=== PATIENT | male | born 1955 | race Caucasian/White ===

== ENCOUNTER 2018-10-28 08:01 | Day surgery (SDC) | payer OTHER, SELFPAY ==
--- NOTE | 2018-10-28 | PATH_ITS ---
[facility] Accession Number: [id number] . 01 Material submitted: . sigmoid colon - SIGMOID COLON POLYP . 02 Diagnosis: Sigmoid Colon Polyp, Biopsy: Tubular adenoma. MRV/10/29/2018 . 02 Electronically signed: . Jojo Christensen MD, Pathologist NPI- [id number] . 01 Gross description: . SIGMOID COLON POLYP: Received in formalin is 1 fragment(s) of kuhn, soft tissue measuring 0.3 x 0.2 x 0.2 cm which is entirely submitted and submitted entirely in 1 cassette(s) /DMC /DMC . 02 Pathologist provided ICD-10: D12.5 . 02 CPT . 174836 Performed at: 01 [facility] [address] [id number] MD Heriberto Zepeda MD Phone: [phone] Performed at: 02 [facility] [place] [address] [place], [place] [id number] MD Jojo Christensen MD Phone: [phone]
[2018-10-28 08:30] VITALS: BP 146/89; PULSE 92; RESP 16; TEMP 36.6; BMI 31.8
[2018-10-28] MEDS: fentaNYL 250 MCG/5 ML INJ IV (10:33)
[2018-10-28] MEDS: MIDAZOLAM 5 MG/5 ML VIAL IV (10:34)
--- NOTE | 2018-10-28 10:38 | PM.HP.1 ---
History of Present Illness Date Patient Seen: 10/28/18 Time Patient Seen: 10:39 Chief complaint: [id number] Narrative: Need for colorectal cancer screening. Last colonoscopy 10 years ago. Possible history of colon polyp but told to follow-up in 10 years so probably not adenomatous. Patient History Medical History (Updated 10/28/18 @ 10:40 by Oni Moon MD) Asthma (Acute) Gout (Acute) Hypertension (Acute) Social History household members: spouse Family & Social History Social History: household members spouse Meds Home Medications Medication Instructions Recorded Confirmed Type albuterol sulfate [Ventolin HFA] 2 puff INHALATION PRN PRN #0 08/09/17 History doxycycline hyclate 100 mg PO Q12H #14 cap 08/09/17 Rx prednisone 50 mg PO [facility] #5 tab 08/09/17 Rx allopurinol 200 mg PO DAILY 10/28/18 10/28/18 History lisinopril-hydrochlorothiazide 1 tab PO DAILY 10/28/18 10/28/18 History tiotropium bromide [Spiriva 2 puff INHALATION DAILY 10/28/18 10/28/18 History Respimat] Allergies Allergy/AdvReac Type Severity Reaction Status Date / Time No Known Drug Allergies Allergy Verified 10/28/18 10:34 Exam Vital Signs (past 8 hours): - 10/28/18 08:30 Temperature 97.8 F Pulse Rate 92 H Respiratory Rate 16 Blood Pressure 146/89 H Oxygen Delivery Method Room Air Narrative Exam Narrative: Oropharynx free of lesions Chest clear to auscultation percussion Cardiac exam reveals no S3 or murmur Assessment & Plan Assessment & Plan narrative: Need for colorectal cancer screening. No history of precancerous polyps most likely Colonoscopy will be performed today. Risks, benefits, alternatives have been explained. Further recommendations will follow the results of the study.
[2018-10-28 10:39] VITALS: BP 96/60; PULSE 81; RESP 15; TEMP 36.1; O2SAT 98
--- NOTE | 2018-10-28 10:41 | P.HP_ITS ---
History of Present Illness Date Patient Seen: 10/28/18 Time Patient Seen: 10:39 Chief complaint: [id number] Narrative: Need for colorectal cancer screening. Last colonoscopy 10 years ago. Possible history of colon polyp but told to follow-up in 10 years so probably not adenomatous. Patient History Medical History (Updated 10/28/18 @ 10:40 by Oni Moon MD) Asthma (Acute) Gout (Acute) Hypertension (Acute) Social History household members: spouse Family & Social History Social History: household members spouse Meds Home Medications Medication Instructions Recorded Confirmed Type albuterol sulfate [Ventolin HFA] 2 puff INHALATION PRN PRN #0 08/09/17 History doxycycline hyclate 100 mg PO Q12H #14 cap 08/09/17 Rx prednisone 50 mg PO [facility] #5 tab 08/09/17 Rx allopurinol 200 mg PO DAILY 10/28/18 10/28/18 History lisinopril-hydrochlorothiazide 1 tab PO DAILY 10/28/18 10/28/18 History tiotropium bromide [Spiriva 2 puff INHALATION DAILY 10/28/18 10/28/18 History Respimat] Allergies Allergy/AdvReac Type Severity Reaction Status Date / Time No Known Drug Allergies Allergy Verified 10/28/18 10:34 Exam Vital Signs (past 8 hours): - 10/28/18 08:30 Temperature 97.8 F Pulse Rate 92 H Respiratory Rate 16 Blood Pressure 146/89 H Oxygen Delivery Method Room Air Narrative Exam Narrative: Oropharynx free of lesions Chest clear to auscultation percussion Cardiac exam reveals no S3 or murmur Assessment & Plan Assessment & Plan narrative: Need for colorectal cancer screening. No history o f precancerous polyps most likely Colonoscopy will be performed today. Risks, benefits, alternatives have been explained. Further recommendations will follow the results of the study.
--- NOTE | 2018-10-28 10:41 | PM.OP.ENDO ---
Operative Date/Time/Diagnoses Date of procedure: 10/28/18 Time of procedure: 10:41 Pre-op diagnosis: See indication and findings Procedure & Clinicians Study performed: Colonoscopy Same procedure as scheduled: Yes Indications: Colorectal cancer screening Surgeon: Oni Moon Procedure Notes Procedure in detail: After informed consent was obtained the patient was placed in left lateral decubitus position. The video colonoscope was introduced the rectum slowly advanced to the cecum. On slow withdrawal mucosa was carefully examined. Scope was removed. The patient tolerated the procedure well. preparation was good. Blood loss none Complications none Medications Fentanyl 100 microchromic Versed 6 mg IV titration Total sedation time 19 minutes Findings Scattered sigmoid diverticulosis 5 mm sigmoid colon polyp which was Jumbo biopsy removed completely Patient will be due for biopsy results. If the polyp is adenomatous as expected that he will need follow-up colonoscopy in 5 years.
[2018-10-28 10:44] VITALS: BP 106/67; PULSE 96; RESP 16; O2SAT 98
[2018-10-28 10:50] VITALS: BP 99/65; PULSE 79; RESP 16; O2SAT 99
[2018-10-28 11:05] VITALS: BP 97/61; PULSE 84; RESP 14; TEMP 36.2; O2SAT 96
[2018-10-28 11:20] VITALS: BP 110/60; PULSE 74; RESP 16; TEMP 36.1; O2SAT 98
== END 2018-10-28 11:25 | disposition home or self-care (01) ==
LOC: ENDO 08:06
PROVIDERS: Visit Provider Internal Medicine Gastroenterology
PROC: 0DJD8ZZ Inspection of Lower Intestinal Tract, Via Natural or Artificial Opening Endoscopic (ICD-10-PCS; CPT 45378; principal; 2018-10-28 09:30)
DX: Z12.11 Encounter for screening for malignant neoplasm of colon (principal); K57.30 Diverticulosis of large intestine without perforation or abscess without bleeding; D12.5 Benign neoplasm of sigmoid colon; J45.909 Unspecified asthma, uncomplicated; I10 Essential (primary) hypertension
CPT/HCPCS: 45380; J2250; J3010

== ENCOUNTER → 2019-09-17 07:47 | Outpatient (CLI) | payer OTHER, SELFPAY ==
--- NOTE | 2019-09-17 09:23 | PM.TREADMILL ---
Cardiac Stress Test Report Referral & Results Date Patient Seen: 09/17/19 Time Patient Seen: 09:23 Requesting provider: Angie Vallejo Indication: Chest pain Rest ECG: Sinus rhythm Procedure Note: Standard Sebas protocol, 7:30, 8.3 METS Reduced exercise capacity, GUERITA +11% Normal hemodynamic reponse to exercise No chest pain or anginal symptoms Resting ECG sinus rhythm, no ST changes, no ectopy Impression: Normal exercise stress test Nuclear images pending Please note: Actual ECG tracings can be found in the PACS system.
--- NOTE | 2019-09-20 14:24 | DI.NM.S_ITS ---
DATE OF SERVICE: 09/17/2019 PROCEDURE PERFORMED:: Exercise treadmill stress and rest myocardial perfusion imaging with gating to assess ejection fraction and regional wall motion. ORDERING PROVIDER:: Angie Vallejo M.D. INDICATION:: Unspecified chest pain. EXERCISE TREADMILL TESTING:: The patient was able to exercise for 7 minutes and 30 seconds on a standard Sebas protocol, suggesting mildly impaired exercise capacity with an GUERITA of +11%. He had a normal heart rate and blood pressure response, achieving a maximum heart rate of 138 bpm (87% of his predicted maximum). He had no chest discomfort. His resting ECG is normal and there are no ischemic changes with stress. There were no arrhythmias. At 6 minutes and 30 seconds of exercise at a heart rate of 130 bpm, 23.8 mCi of technetium-99m Myoview was injected and the patient was imaged 15 minutes later using a gated SPECT acquisition protocol. He returned three days later and was reinjected with an additional 25.6 mCi of technetium-99m Myoview and was imaged 30 minutes later, again using a gated SPECT acquisition protocol. FINDINGS:: 1. RAW DATA: There is fair myocardial tracer uptake. Lung-heart ratio was normal at 0.34 with a normal TID ratio of 0.75. 2. QUANTITATED GATED SPECT: Post-stress ejection fraction is estimated at 85% without any focal wall motion abnormality and specifically the distal inferoapex appears to have brisk contractility. The resting ejection fraction is 79% with an end- diastolic volume of 114 mL. 3. MYOCARDIAL PERFUSION IMAGING: Post-stress supine images show a fairly normal myocardial perfusion pattern with the exception of a very mild defect in the very distal inferior wall extending to the inferior apex in a pattern that could reflect attenuation artifact, although persists to a slight degree on the prone images. The resting images show an identical perfusion pattern without any clear area of improvement in this area. IMPRESSION:: 1. Probable normal myocardial perfusion study. 2. Mild, small fixed perfusion defect in the very distal inferior wall and inferoapex that improves, but does not completely resolve on the prone images. Given its location, this most likely reflects attenuation artifact, although a previous nontransmural myocardial infarction cannot be excluded, but is less likely given the absence of any regional wall motion abnormality. there is no evidence for any myocardial ischemia. 3. Normal left ventricular systolic function without any focal wall motion abnormality. 4. Mildly impaired exercise capacity without angina or ECG evidence of ischemia. Paiz Jovan - JOEY/justino/radha doc#: [id number]/job#: [id number] dd: 09/20/2019 12:42:00 dt: 09/20/2019 13:58:00 DICTATING MD/COPIES TO: Adolfo Zhou MD; Angie Vallejo M.D. COPIES MNE: RIAN;
== END ==
PROVIDERS: Referring Provider Nurse Practitioner Acute Care; Visit Provider Nurse Practitioner Acute Care
DX: R07.9 Chest pain, unspecified (principal)
CPT/HCPCS: 78452; 93017; A9502

== ENCOUNTER 2019-10-07 18:43 | Emergency (ER) | payer OTHER, MEDICAID, SELFPAY ==
--- NOTE | 2019-10-07 18:49 | ED_ITS ---
HPI - Anxiety General Chief Complaint: Shortness of Breath/Dyspnea Stated Complaint: anxiety attack, body freaking out cant breath Time Seen by Provider: 10/07/19 18:49 Source: patient and family Mode of arrival: Ambulatory Limitations: no limitations History of Present Illness HPI narrative: 63-year-old male former smoker with history of asthma, COPD, and hypertension presents with his in the chief complaint of episodes of palpitations and perceived shortness of breath over the past few days. He denies runny nose, sore throat or cough. He has had no fever or chills. He denies nausea, vomiting or diarrhea. He denies any change in his medications or diet. He denies any recent travel or exposure to persons under the suspicion for COVID-19. MD complaint: anxiety, heart racing and shortness of breath Onset (ago): day(s) Symptoms: dyspnea and palpitations Severity: mild Quality: intermittent History of similar episodes: No Provoking factors: none known Relieving factors: nothing Exacerbating factors: nothing Associated symptoms: shortness of breath and palpitations Related Data Home Medications Medication Instructions Recorded Confirmed albuterol sulfate [Ventolin HFA] 2 puff INHALATION PRN PRN #0 08/09/17 allopurinol 200 mg PO DAILY 10/28/18 10/28/18 lisinopril-hydrochlorothiazide 1 tab PO DAILY 10/28/18 10/28/18 tiotropium bromide [Spiriva 2 puff INHALATION DAILY 10/28/18 10/28/18 Respimat] Previous Rx's Medication Instructions Recorded doxycycline hyclate 100 mg PO Q12H #14 cap 08/09/17 prednisone 50 mg PO [facility] #5 tab 08/09/17 Allergies Allergy/AdvReac Type Severity Reaction Status Date / Time No Known Drug Allergies Allergy Verified 10/07/19 18:58 Review of Systems Constitutional Constitutional: Denies chills, Denies fatigue, Denies fever(s), Denies frequent falls, Denies lethargy and Denies weakness Eyes Eyes: Denies change in vision, Denies eye discharge, Denies irritation and Denies loss of vision ENT Ears, Nose, Mouth, and Throat: Denies change in voice, Denies dizziness, Denies neck pain, Denies sore throat and Denies throat swelling Cardiovascular Cardiovascular: Denies chest pain, Denies irregular heart rhythm, Denies lightheadedness, Reports palpitations, Reports dyspnea, Denies dyspnea on exertion and Denies orthopnea Respiratory Respiratory: Denies cough, Reports dyspnea, Denies dyspnea on exertion and Denies wheezing Gastrointestinal Gastrointestinal: Denies abdominal pain, Denies change in bowel habits, Denies diarrhea, Denies nausea and Denies vomiting Genitourinary Genitourinary: Denies hematuria, Denies flank pain, Denies urinary incontinence and Denies urinary urgency Musculoskeletal Musculoskeletal: Denies back pain, Denies muscle weakness, Denies neck pain, Denies numbness and Denies tingling Integumentary/Breasts Skin/Breast: Denies pruritus, Denies erythema, Denies rash and Denies wounds Neurologic Neurologic: Denies behavioral changes, Denies confusion, Denies dizziness, Denies frequent falls, Denies loss of vision, Denies numbness, Denies tingling and Denies weakness Psychiatric Psychiatric: Denies anxiety, Denies behavioral changes, Denies confusion, Denies depression, Denies homicidal ideation and Denies suicidal ideation Endocrine Endocrine: Denies fatigue, Denies flushing and Reports palpitations Hematologic/Lymphatic Hematologic/Lymphatic: Denies easy bruising Allergic/Immunologic Allergic/Immunologic: Denies urticaria, Denies throat swelling and Denies wheezing Patient History Medical History Asthma (Acute) Gout (Acute) Hypertension (Acute) Social History household members: spouse Smoking Status: Unknown if ever smoked Exam Narrative Exam Narrative: GENERAL: [63] year old patient appears stated age. Well- nourished, well-developed patient, in mild distress. HEAD: Atraumatic. Normocephalic. EYES: Pupils equal round and reactive. Extraocular motions intact. No scleral icterus. No injection or drainage. ENT: Nose without bleeding, purulent drainage. Throat without erythema, tonsillar hypertrophy or exudate. Airway patent. NECK: Trachea midline. Non tender CARDIOVASCULAR: Regular rate and rhythm without murmurs, gallops, or rubs. RESPIRATORY: Clear to auscultation. Breath sounds equal bilaterally. No wheezes, rales, or rhonchi. GASTROINTESTINAL: Abdomen soft, non-tender, nondistended. EXTREMITIES: No edema or joint tenderness. BACK: Nontender without deformity or crepitance. No flank tenderness. NEURO: AOx3. SKIN: No rash or erythema of visible areas Initial Vital Signs Initial Vital Signs: Vital Signs Temperature 98.0 F 10/07/19 18:50 Pulse Rate 103 H 10/07/19 18:50 Respiratory Rate 16 10/07/19 18:50 Blood Pressure 189/91 H 10/07/19 18:50 Pulse Oximetry 97 10/07/19 18:50 Course Orders Ordered: ED Orders 10/07/19 18:57 XR chest 1V Stat 10/07/19 18:58 EKG-12 Lead Stat 10/07/19 20:05 C-Reactive Protein Quant Stat Complete Blood Count AUTO DIFF Stat Comprehensive Metabolic Panel Stat D Dimer Stat Ferritin Stat Magnesium Stat NT-proBNP (BNP-Adult 18+) Stat Procalcitonin Stat Troponin & CK Cardiac Panel Stat Vital Signs Vital signs: Vital Signs - 8 hr 10/07/19 18:50 10/07/19 19:10 10/07/19 20:16 Temperature 98.0 F Pulse Rate 103 H 96 H 84 Respiratory Rate 16 22 Blood Pressure 189/91 H Blood Pressure [Right Arm] 158/77 H 175/97 H Pulse Oximetry 97 97 96 10/07/19 21:05 Temperature Pulse Rate 79 Respiratory Rate Blood Pressure Blood Pressure [Right Arm] 156/82 H Pulse Oximetry 96 MDM - Anxiety Lab Data Result diagrams: 10/07/19 20:05 10/07/19 20:05 Labs: Lab Results 10/07/19 10/07/19 10/07/19 Range/Units 20:05 20:05 20:05 WBC 8.3 (4.5-11.0) X10^3/uL RBC 4.66 (4.5-5.9) X10^6/uL Hgb 13.8 (13.5-17.5) g/dL Hct 41.1 (41-53) % MCV 88.1 (80-100) fL MCH 29.6 (26-34) PG MCHC 33.6 (30-36) % RDW 14.5 (11.6-14.8) % Plt Count 313 (150-400) X10^3/uL Neut % (Auto) 73.3 (50-75) % Lymph % (Auto) 16.3 L (25-40) % Radford % (Auto) 7.2 (3-14) % Eos % (Auto) 2.6 (2-4) % Baso % (Auto) 0.6 (0-2) % Neut # (Auto) 6100 (9723-4410) /uL Lymph # (Auto) 1300 (6812-9689) /uL Radford # (Auto) 600 (0-900) /uL Eos # (Auto) 200 (0-450) /uL Baso # (Auto) 0 (0-100) /uL D-Dimer 225 (<230) ng/mL Sodium 141 (137-145) mmol/L Potassium 3.8 (3.4-5.1) mmol/L Chloride 108 H (98-107) mmol/L Carbon Dioxide 27 (22-32) mmol/L BUN 15 (9-20) mg/dL Creatinine 1.51 H (0.66-1.25) mg/dL Estimated GFR 47.2 L (>60) mL/min BUN/Creatinine Ratio 9.9 (6-22) Glucose 96 (80-110) mg/dL Calcium 9.2 (8.4-10.2) mg/dL Magnesium 1.7 (1.6-2.3) mg/dL Ferritin 355 (18-464) ng/mL Total Bilirubin 0.8 (0.2-1.3) mg/dL AST 26 (17-59) IU/L ALT 26 (<50) IU/L Alkaline Phosphatase 109 (38-126) U/L Total Creatine Kinase 118 (55-170) U/L CK-MB (CK-2) 0.62 (<2.37) ng/mL CK-MB (CK-2) Rel Index 0.5 L (1.5-5.0) % Troponin I < 0.012 (0.01-0.034) ng/mL C-Reactive Protein 1.6 H (<1.0) mg/dL NT-Pro-B Natriuret Pep (<125) pg/mL Total Protein 7.9 (6.3-8.2) g/dL Albumin 4.4 (3.5-5.0) g/dL Globulin 3.5 (1.7-4.1) g/dL Albumin/Globulin Ratio 1.3 (1.0-2.8) Procalcitonin (<0.5) ng/mL 10/07/19 10/07/19 Range/Units 20:05 20:05 WBC (4.5-11.0) X10^3/uL RBC (4.5-5.9) X10^6/uL Hgb (13.5-17.5) g/dL Hct (41-53) % MCV (80-100) fL MCH (26-34) PG MCHC (30-36) % RDW (11.6-14.8) % Plt Count (150-400) X10^3/uL Neut % (Auto) (50-75) % Lymph % (Auto) (25-40) % Radford % (Auto) (3-14) % Eos % (Auto) (2-4) % Baso % (Auto) (0-2) % Neut # (Auto) (6138-8050) /uL Lymph # (Auto) (4209-5075) /uL Radford # (Auto) (0-900) /uL Eos # (Auto) (0-450) /uL Baso # (Auto) (0-100) /uL D-Dimer (<230) ng/mL Sodium (137-145) mmol/L Potassium (3.4-5.1) mmol/L Chloride (98-107) mmol/L Carbon Dioxide (22-32) mmol/L BUN (9-20) mg/dL Creatinine (0.66-1.25) mg/dL Estimated GFR (>60) mL/min BUN/Creatinine Ratio (6-22) Glucose (80-110) mg/dL Calcium (8.4-10.2) mg/dL Magnesium (1.6-2.3) mg/dL Ferritin (18-464) ng/mL Total Bilirubin (0.2-1.3) mg/dL AST (17-59) IU/L ALT (<50) IU/L Alkaline Phosphatase (38-126) U/L Total Creatine Kinase (55-170) U/L CK-MB (CK-2) (<2.37) ng/mL CK-MB (CK-2) Rel Index (1.5-5.0) % Troponin I (0.01-0.034) ng/mL C-Reactive Protein (<1.0) mg/dL NT-Pro-B Natriuret Pep 62 (<125) pg/mL Total Protein (6.3-8.2) g/dL Albumin (3.5-5.0) g/dL Globulin (1.7-4.1) g/dL Albumin/Globulin Ratio (1.0-2.8) Procalcitonin < 0.05 (<0.5) ng/mL Imaging Data Chest x-ray: Radiologist's Impression: Chart Viewer Diagnostics DATE TYPE STATUS AUTHOR Hx 10/07/19 18:57 Trae Gauthier 09/20/19 14:24 Adolfo Zhou 09/20/19 14:24 Adolfo Zhou 10/28/18 08:01 Jovan Paiz 63, 1955 [facility], Main ED R06 182.88cm 112.945kg BMI: 33.8kg/m? Shortness of Breath/Dyspnea Search Chart No Data to Display ONSET Today 20:16 Jovan Paiz 63 [place] 1955 [place] [address] XRay Report Signed Patient: Jovan Paiz LMR#: [id number] : 8Acct:[id number] Age/Sex: 63 / MDate of Service: 10/07/19 Loc: ED Accession Number: [id number] Procedure: XR chest 1V Ordering Provider: Victorino Hughes D.O. PROCEDURE: XR CHEST 1V INDICATIONS: SOB, cough TECHNIQUE: One view of the chest was acquired. COMPARISON: [facility], , CHEST 2 VIEW, 08/09/2017, 17:06. FINDINGS: Surgical changes and devices: None. Lungs and pleura: Lungs are clear. No pleural effusions or pneumothorax. Mediastinum: Mediastinal contours appear normal. Heart size is normal. Bones and chest wall: No suspicious bony lesions. Overlying soft tissues appear unremarkable. IMPRESSION: Stable radiographic evaluation of the chest without acute ca rdiopulmonary abnormalities or focal airspace disease. Dictated by: Trae Gauthier M.D. on 10/07/2019 at 19:19 Approved by: Trae Gauthier M.D. on 10/07/2019 at 19:20 [facility] Narrative Medical decision making narrative: Multiple etiologies for patient's symptoms considered including: [pneumonia vs. dysrhythmia vs. electrolyte abnormality vs. COPD exacerbation vs. other)] Patient's symptoms improved or duration of stay with above-stated therapies. Findings and discharge diagnosis discussed with patient/family followed by anselmo raezation of understanding Return precautions discussed with patient/family whom verbalize understanding. Discharge Plan Departure Patient Disposition: Home Clinical Impression: Acute dyspnea, Anxiety, Heart palpitations Discharge Date/Time: 10/07/19 21:32 Activity Restrictions/Additional Instructions: *You have been diagnosed with [ shortness of breath and palpitations] *What to do: *Take medications as directed *Follow up with your primary care provider in 2-3 days, call for an appointment. Let them know you were seen in the Emergency Department and that we ask that you be seen in follow up *Return to ER if you should have any new, worsening or concerning symptoms Prescriptions: No Action albuterol sulfate [Ventolin HFA] 90 MCG/PUFF HFA aerosol inhaler 2 puff Inhalation PRN PRN (Reason: Dyspnea) Qty: 0 RF: 0 doxycycline hyclate 100 MG capsule 100 mg PO Q12H Qty: 14 RF: 0 prednisone 50 MG tablet 50 mg PO [facility] Qty: 5 RF: 0 lisinopril-hydrochlorothiazide 20-12.5 mg Tablet 1 tab PO DAILY RF: 0 allopurinol 100 mg Tablet 200 mg PO DAILY RF: 0 Spiriva Respimat 2.5 mcg/actuation Mist 2 puff INHALATION DAILY RF: 0 Referrals: [facility] [Outside]
[2019-10-07 18:50] VITALS: BP 189/91; PULSE 103; RESP 16; TEMP 36.7; O2SAT 97; BMI 33.7
--- NOTE | 2019-10-07 18:57 | DI.RAD.S_ITS ---
PROCEDURE: XR CHEST 1V INDICATIONS: SOB, cough TECHNIQUE: One view of the chest was acquired. COMPARISON: [facility], , CHEST 2 VIEW, 08/09/2017, 17:06. FINDINGS: Surgical changes and devices: None. Lungs and pleura: Lungs are clear. No pleural effusions or pneumothorax. Mediastinum: Mediastinal contours appear normal. Heart size is normal. Bones and chest wall: No suspicious bony lesions. Overlying soft tissues appear unremarkable. IMPRESSION: Stable radiographic evaluation of the chest without acute cardiopulmonary abnormalities or focal airspace disease. Dictated by: Trae Gauthier M.D. on 10/07/2019 at 19:19 Approved by: Trae Gauthier M.D. on 10/07/2019 at 19:20
[2019-10-07 19:10] VITALS: BP 158/77; PULSE 96; O2SAT 97
[2019-10-07 20:16] VITALS: BP 175/97; PULSE 84; RESP 22; O2SAT 96
[2019-10-07 20:17] LABS: Add Manual Diff / Slide Review NO; Basophils Absolute Auto 0 /uL (0-100); Basophils Percent Auto 0.6 % (0-2); Eosinophils Absolute Auto 200 /uL (0-450); Eosinophils Percent Auto 2.6 % (2-4); Hematocrit 41.1 % (41-53); Hemoglobin 13.8 g/dL (13.5-17.5); Lymphocytes Absolute Auto 1300 /uL (1100-4500); Lymphocytes Percent Auto 16.3 % (25-40); Mean Corpuscular HGB Conc 33.6 % (30-36); Mean Corpuscular Hemoglobin 29.6 PG (26-34); Mean Corpuscular Volume 88.1 fL (80-100); Monocytes Absolute Auto 600 /uL (0-900); Monocytes Percent Auto 7.2 % (3-14); Neutrophils Absolute Auto 6100 /uL (1500-7000); Neutrophils Percent Auto 73.3 % (50-75); Platelet Count 313 X10^3/uL (150-400); Red Blood Cell Count 4.66 X10^6/uL (4.5-5.9); Red Cell Distribution Width 14.5 % (11.6-14.8); White Blood Cell Count 8.3 X10^3/uL (4.5-11.0)
[2019-10-07 20:27] LABS: D Dimer 225 ng/mL (<230)
[2019-10-07 20:30] LABS: Alanine Aminotransferase 26 IU/L (<50); Albumin 4.4 g/dL (3.5-5.0); Albumin Globulin Ratio 1.3 (1.0-2.8); Alkaline Phosphatase 109 U/L (38-126); Aspartate Aminotransferase 26 IU/L (17-59); BUN Creatinine Ratio 9.9 (6-22); Bilirubin Total 0.8 mg/dL (0.2-1.3); Blood Urea Nitrogen 15 mg/dL (9-20); Calcium 9.2 mg/dL (8.4-10.2); Carbon Dioxide 27 mmol/L (22-32); Chloride 108 mmol/L (98-107); Creatine Kinase 118 U/L (55-170); Estimated Glomerular Filt Rate 47.2 mL/min (>60); Globulin 3.5 g/dL (1.7-4.1); Glucose 96 mg/dL (80-110); HEMOLYSIS < 15 (0-50); Magnesium 1.7 mg/dL (1.6-2.3); Potassium 3.8 mmol/L (3.4-5.1); Sodium 141 mmol/L (137-145); Total Protein 7.9 g/dL (6.3-8.2)
[2019-10-07 20:37] LABS: C-Reactive Protein Quant 1.6 mg/dL (<1.0)
[2019-10-07 20:39] LABS: NT-proBNP (BNP-Adult 18+) 62 pg/mL (<125)
[2019-10-07 20:42] LABS: Troponin I < 0.012 ng/mL (0.01-0.034)
[2019-10-07 20:54] LABS: Procalcitonin < 0.05 ng/mL (<0.5)
[2019-10-07 21:05] VITALS: BP 156/82; PULSE 79; O2SAT 96
[2019-10-07 21:05] LABS: Ferritin 355 ng/mL (18-464)
[2019-10-07 21:21] LABS: CKMB % Relative Index 0.5 % (1.5-5.0); Creatine Kinase MB 0.62 ng/mL (<2.37)
[2019-10-09 22:53] LABS: COVID19 Sendout Not Detected (Not Detected)
== END 2019-10-07 21:32 | disposition home or self-care (01) ==
PROVIDERS: Emergency Provider Emergency Medicine
DX: R06.00 Dyspnea, unspecified (principal); F41.9 Anxiety disorder, unspecified; R00.2 Palpitations; I10 Essential (primary) hypertension; J44.9 Chronic obstructive pulmonary disease, unspecified
CPT/HCPCS: 36415; 71045; 80053; 82550; 82553; 82728; 83735; 83880; 84145; 84484; 85025; 85379; 86140; 87635; 93005; 99284

== ENCOUNTER 2019-10-15 13:22 | Emergency (ER) | payer OTHER, MEDICAID, SELFPAY ==
[2019-10-15 13:28] VITALS: BP 174/81; PULSE 108; RESP 24; TEMP 36.3; O2SAT 97
--- NOTE | 2019-10-15 14:16 | DI.RAD.S_ITS ---
PROCEDURE: XR CHEST 1V INDICATIONS: chest pain TECHNIQUE: One view of the chest was acquired. COMPARISON: [facility], CR, XR CHEST 1V, 10/07/2019, 19:07. FINDINGS: Surgical changes and devices: None. Lungs and pleura: Lungs are clear. No pleural effusions or pneumothorax. Mediastinum: Mediastinal contours appear normal. Heart size is normal. Bones and chest wall: No suspicious bony lesions. Overlying soft tissues appear unremarkable. IMPRESSION: No evidence acute pulmonary process. Dictated by: hCin Vazquez M.D. on 10/15/2019 at 15:38 Approved by: Chin Vazquez M.D. on 10/15/2019 at 15:38
[2019-10-15 14:24] LABS: Add Manual Diff / Slide Review NO; Basophils Absolute Auto 0 /uL (0-100); Basophils Percent Auto 0.9 % (0-2); Eosinophils Absolute Auto 100 /uL (0-450); Eosinophils Percent Auto 2.5 % (2-4); Hematocrit 40.4 % (41-53); Hemoglobin 13.6 g/dL (13.5-17.5); Lymphocytes Absolute Auto 800 /uL (1100-4500); Lymphocytes Percent Auto 14.6 % (25-40); Mean Corpuscular HGB Conc 33.7 % (30-36); Mean Corpuscular Hemoglobin 29.6 PG (26-34); Mean Corpuscular Volume 87.8 fL (80-100); Monocytes Absolute Auto 400 /uL (0-900); Monocytes Percent Auto 7.1 % (3-14); Neutrophils Absolute Auto 4200 /uL (1500-7000); Neutrophils Percent Auto 74.9 % (50-75); Platelet Count 332 X10^3/uL (150-400); Red Cell Distribution Width 14.3 % (11.6-14.8); White Blood Cell Count 5.6 X10^3/uL (4.5-11.0)
--- NOTE | 2019-10-15 14:27 | ED.GENADULT ---
HPI - General Adult General Chief complaint: Fever Stated complaint: Burning and pressure in chest, fever, cough Time Seen by Provider: 10/15/19 13:54 Source: patient Mode of arrival: Ambulatory Limitations: no limitations History of Present Illness HPI narrative: 63-year-old gentleman followed at the [facility] with a history of COPD, gout, hypertension presents with coughing and burning pain with the cough. He notes that he had chills and rigors with fever last night had difficulty sleeping. He is been symptomatic for approximately a week and is now beginning to produce some yellow sputum. Was seen on October 06 for dyspnea and was Covid19 negative at that time. He had a cardiac stress test September 16 for chest pain and was found to have normal hemodynamic response to exercise without reproducible chest pain during the exam. Related Data Home Medications Medication Instructions Recorded Confirmed albuterol sulfate [Ventolin HFA] 2 puff INHALATION PRN PRN #0 08/09/17 10/15/19 allopurinol 200 mg PO DAILY 10/28/18 10/15/19 tiotropium bromide [Spiriva 2 puff INHALATION DAILY 10/28/18 10/15/19 Respimat] Previous Rx's Medication Instructions Recorded benzonatate [Tessalon Perles] 100 mg PO BID PRN #14 cap 10/15/19 prednisone 20 mg PO DAILY #5 tab 10/15/19 Allergies Allergy/AdvReac Type Severity Reaction Status Date / Time No Known Drug Allergies Allergy Verified 10/15/19 13:31 Review of Systems Review of Systems Narrative: Denies Rhinorrhea ? orthopnea ? wheezing ? abdominal pain ? change to bowel or bladder habits ? nausea vomiting ? skin changes ? rashes Patient History Medical History Asthma (Acute) Gout (Acute) Hypertension (Acute) Social History household members: spouse Smoking Status: Former smoker Smoking Status: Former smoker alcohol intake frequency: holidays/special occasions only Substance Use Type: does not use Exam Narrative Exam Narrative: General: Healthy appearing, in no acute distress. Able to give a complete and coherent history. Well-nourished well-developed HEENT: Moist mucous membranes, normal sclera with reactive pupils, Neck: No JVD, supple Respiratory: Lungs are essentially clear to auscultation, no wheezing, no rhonchi does have scattered rales in the lower lung jalloh bilaterally. Full and symmetrical air movement Cardiac: Regular rate and rhythm no murmurs no bruits Abdomen: Soft nontender good bowel tones, no flank pain Skin: Warm and dry, no rashes Neurologic: Grossly neurologically intact with no obvious asymmetries or abnormalities Extremities: No trauma, well perfused, 1+ edema bilaterally Psych: Cooperative, appropriate insight and affect Initial Vital Signs Initial Vital Signs: Vital Signs Temperature 97.4 F L 10/15/19 13:28 Pulse Rate 108 H 10/15/19 13:28 Respiratory Rate 24 10/15/19 13:28 Blood Pressure 174/81 H 10/15/19 13:28 Pulse Oximetry 97 10/15/19 13:28 Course Orders Ordered: ED Orders 10/15/19 13:33 EKG-12 Lead Stat 10/15/19 14:00 Complete Blood Count AUTO DIFF Stat Comprehensive Metabolic Panel Stat Lactate (Lactic Acid) Stat Lipase Stat Partial Thromboplastin Time Stat Prothrombin Time INR Stat Troponin & CK Cardiac Panel Stat 10/15/19 14:16 XR chest 1V Stat Discontinued Medications Sodium Chloride (Normal Saline 0.9%) 1,000 mls @ 1,000 mls/hr IV BOLUS ONE Stop: 10/15/19 15:25 Last Infusion: 10/15/19 16:31 Dose: 0 mls/hr Documented by: Admin: 10/15/19 15:15 Dose: 1,000 mls/hr Documented by: BETTY Methylprednisolone (Solu-Medrol 125 Mg Vial) 125 mg IV NOW ONE Stop: 10/15/19 14:34 Last Admin: 10/15/19 15:15 Dose: 125 mg Documented by: BETTY Vital Signs Vital signs: Vital Signs - 8 hr 10/15/19 13:28 10/15/19 15:03 10/15/19 16:03 Temperature 97.4 F L Pulse Rate 108 H 85 77 Respiratory Rate 24 11 L 11 L Blood Pressure 174/81 H Blood Pressure [Right Arm] 164/78 H 143/71 H Pulse Oximetry 97 97 97 10/15/19 16:30 Temperature Pulse Rate 87 Respiratory Rate 14 Blood Pressure Blood Pressure [Right Arm] 155/74 H Pulse Oximetry 96 Medical Decision Making Medical Records Medical records reviewed: Yes I reviewed the patient's medical records. Lab Data Result diagrams: 10/15/19 14:00 10/15/19 14:00 Labs: Lab Results 10/15/19 10/15/19 10/15/19 Range/Units 14:00 14:00 14:00 WBC 5.6 (4.5-11.0) X10^3/uL RBC 4.60 (4.5-5.9) X10^6/uL Hgb 13.6 (13.5-17.5) g/dL Hct 40.4 L (41-53) % MCV 87.8 (80-100) fL MCH 29.6 (26-34) PG MCHC 33.7 (30-36) % RDW 14.3 (11.6-14.8) % Plt Count 332 (150-400) X10^3/uL Neut % (Auto) 74.9 (50-75) % Lymph % (Auto) 14.6 L (25-40) % Brantley % (Auto) 7.1 (3-14) % Eos % (Auto) 2.5 (2-4) % Baso % (Auto) 0.9 (0-2) % Neut # (Auto) 4200 (0228-5571) /uL Lymph # (Auto) 800 L (3045-8528) /uL Brantley # (Auto) 400 (0-900) /uL Eos # (Auto) 100 (0-450) /uL Baso # (Auto) 0 (0-100) /uL PT 12.5 (10.1-12.7) SECONDS INR 1.1 (0.9-1.3) APTT 31 (26.4-36.2) SECONDS Sodium 139 (137-145) mmol/L Potassium 3.9 (3.4-5.1) mmol/L Chloride 108 H (98-107) mmol/L Carbon Dioxide 24 (22-32) mmol/L BUN 12 (9-20) mg/dL Creatinine 1.17 (0.66-1.25) mg/dL Estimated GFR > 60.0 (>60) mL/min BUN/Creatinine Ratio 10.3 (6-22) Glucose 128 H (80-110) mg/dL Lactate (0.7-2.1) mmol/L Calcium 9.4 (8.4-10.2) mg/dL Total Bilirubin 0.6 (0.2-1.3) mg/dL AST 39 (17-59) IU/L ALT 45 (<50) IU/L Alkaline Phosphatase 107 (38-126) U/L Total Creatine Kinase 139 (55-170) U/L CK-MB (CK-2) 1.08 (<2.37) ng/mL CK-MB (CK-2) Rel Index 0.8 L (1.5-5.0) % Troponin I < 0.012 (0.01-0.034) ng/mL Total Protein 8.0 (6.3-8.2) g/dL Albumin 4.4 (3.5-5.0) g/dL Globulin 3.6 (1.7-4.1) g/dL Albumin/Globulin Ratio 1.2 (1.0-2.8) Lipase 106 (23-300) U/L 10/15/19 Range/Units 14:00 WBC (4.5-11.0) X10^3/uL RBC (4.5-5.9) X10^6/uL Hgb (13.5-17.5) g/dL Hct (41-53) % MCV (80-100) fL MCH (26-34) PG MCHC (30-36) % RDW (11.6-14.8) % Plt Count (150-400) X10^3/uL Neut % (Auto) (50-75) % Lymph % (Auto) (25-40) % Brantley % (Auto) (3-14) % Eos % (Auto) (2-4) % Baso % (Auto) (0-2) % Neut # (Auto) (8070-8443) /uL Lymph # (Auto) (1168-5427) /uL Brantley # (Auto) (0-900) /uL Eos # (Auto) (0-450) /uL Baso # (Auto) (0-100) /uL PT (10.1-12.7) SECONDS INR (0.9-1.3) APTT (26.4-36.2) SECONDS Sodium (137-145) mmol/L Potassium (3.4-5.1) mmol/L Chloride (98-107) mmol/L Carbon Dioxide (22-32) mmol/L BUN (9-20) mg/dL Creatinine (0.66-1.25) mg/dL Estimated GFR (>60) mL/min BUN/Creatinine Ratio (6-22) Glucose (80-110) mg/dL Lactate 0.8 (0.7-2.1) mmol/L Calcium (8.4-10.2) mg/dL Total Bilirubin (0.2-1.3) mg/dL AST (17-59) IU/L ALT (<50) IU/L Alkaline Phosphatase (38-126) U/L Total Creatine Kinase (55-170) U/L CK-MB (CK-2) (<2.37) ng/mL CK-MB (CK-2) Rel Index (1.5-5.0) % Troponin I (0.01-0.034) ng/mL Total Protein (6.3-8.2) g/dL Albumin (3.5-5.0) g/dL Globulin (1.7-4.1) g/dL Albumin/Globulin Ratio (1.0-2.8) Lipase (23-300) U/L Imaging Data Chest x-ray: Radiologist's Impression: IMPRESSION: Stable radiographic evaluation of the chest without acute cardiopulmonary abnormalities or focal airspace disease. Dictated by: Trae Gauthier M.D. on 10/07/2019 at 19:19 ECG Data Attestation: I personally reviewed and interpreted this ECG as follows: Interpretation: Sinus rhythm at a rate of 94 Borderline left axis deviation without any acute ischemic changes MDM Narrative Medical decision making narrative: 63-year-old gentleman with persistent cough. No evidence of infiltrate on chest x-ray, normal white blood cell count no abnormal EKG or lab to suggest acute coronary syndrome, clinically no concern for pulmonary embolism. Covid19 testing is pending however clinically seems less likely at this time. With his history of COPD will treat him with a brief steroid taper have him continue his albuterol inhalers and give him some Tessalon to help control the cough. Discharge Plan Departure Patient Disposition: Home Clinical Impression: Viral infection, Acute exacerbation of chronic obstructive pulmonary disease, Cough Instructions: DI for Viral Syndrome Activity Restrictions/Additional Instructions: Thank you for coming in today I am not finding any life-threatening explanations for your persistent cough. There is no evidence of a consolidated pneumonia, heart attack or heart attack like syndrome, your oxygen levels are reassuring. We have done a Covid19 swab and you will hear back when results are available. In the meantime I am going to suggest we assume that this is a typical virus that will improve and has exacerbated her COPD. I am going to suggest a brief steroid taper and continued use of your albuterol. I will also give you some Tessalon Perles to help suppress the cough a bit. In the meantime, CDC Guidelines for home isolation: - Stay away from others - Limit contact with pets and animals: If you must care for a pet, wash your hands before and after interacting with them - Wear a mask if you are sick - Cover your mouth and nose with a tissue when you cough or sneeze. Dispose of tissues in a lined trash can and wash your hands immediately with soap and water for at least 20 seconds. If soap and water are not available, clean hands with alcohol-based hand cylinder head assembler that contains at least 60% alcohol. - Clean your hands often with soap and water for at least 20 seconds - Avoid touching your eyes, nose and mouth with unwashed hands - Do not share dishes, drinking glasses, cups, eating utensils, towels, or bedding with other people in your home. After using these items, wash them thoroughly with soap and water or put in the diamond merchant. - Clean high-touch surfaces in your isolation area (?sick room? and bathroom) every day; let a caregiver clean and disinfect high-touch surfaces in other areas of the home. Clean the area or item with soap and water or another detergent if it is dirty. Then, use a household disinfectant. Seek medical attention, but call first: - Seek medical care right away if your illness is worsening (for example, if you have difficulty breathing). - Call your doctor before going in: Before going to the doctor?s office or emergency room, call ahead and tell them your symptoms. They will tell you what to do. - If possible, put on a facemask before you enter the building. If you can?t put on a facemask, try to keep a safe distance from other people (at least 6 feet away). This will help protect the people in the office or waiting room. - Follow care instructions from your healthcare provider and local health department: Your local health authorities will give instructions on checking your symptoms and reporting information. Emergency warning signs for COVID-19: - Difficulty breathing or shortness of breath - Persistent pain or pressure in the chest - New confusion or inability to arouse - Bluish lips or face Prescriptions: New prednisone 20 mg tablet 20 mg PO DAILY Qty: 5 RF: 0 benzonatate [Tessalon Perles] 100 mg capsule 100 mg PO BID PRN (Reason: cough) Qty: 14 RF: 0 No Action albuterol sulfate [Ventolin HFA] 90 MCG/PUFF HFA aerosol inhaler 2 puff Inhalation PRN PRN (Reason: Dyspnea) Qty: 0 RF: 0 allopurinol 100 mg Tablet 200 mg PO DAILY RF: 0 Spiriva Respimat 2.5 mcg/actuation Mist 2 puff INHALATION DAILY RF: 0 Referrals: Angie Vallejo [Primary Care Provider] -
[2019-10-15 14:28] LABS: INR 1.1 (0.9-1.3); Prothrombin Time 12.5 SECONDS (10.1-12.7)
[2019-10-15 14:30] LABS: PTT Partial Thromboplastin Tim 31 SECONDS (26.4-36.2)
[2019-10-15 14:32] LABS: Alanine Aminotransferase 45 IU/L (<50); Albumin 4.4 g/dL (3.5-5.0); Albumin Globulin Ratio 1.2 (1.0-2.8); Alkaline Phosphatase 107 U/L (38-126); Aspartate Aminotransferase 39 IU/L (17-59); BUN Creatinine Ratio 10.3 (6-22); Bilirubin Total 0.6 mg/dL (0.2-1.3); Blood Urea Nitrogen 12 mg/dL (9-20); Calcium 9.4 mg/dL (8.4-10.2); Carbon Dioxide 24 mmol/L (22-32); Chloride 108 mmol/L (98-107); Creatine Kinase 139 U/L (55-170); Estimated Glomerular Filt Rate > 60.0 mL/min (>60); Globulin 3.6 g/dL (1.7-4.1); Glucose 128 mg/dL (80-110); HEMOLYSIS < 15 (0-50); Lactate (Lactic Acid) 0.8 mmol/L (0.7-2.1); Lipase 106 U/L (23-300); Potassium 3.9 mmol/L (3.4-5.1); Sodium 139 mmol/L (137-145)
[2019-10-15 14:43] LABS: Troponin I < 0.012 ng/mL (0.01-0.034)
[2019-10-15 14:46] LABS: CKMB % Relative Index 0.8 % (1.5-5.0); Creatine Kinase MB 1.08 ng/mL (<2.37)
[2019-10-15 15:03] VITALS: BP 164/78; PULSE 85; RESP 11; O2SAT 97
[2019-10-15] MEDS: methylPREDNISolone 125 MG/2 ML VIAL IV (15:15)
[2019-10-15] MEDS: SODIUM CHLORIDE 0.9% 1,000 ML 1000 ML IV (15:15)
[2019-10-15 16:03] VITALS: BP 143/71; PULSE 77; RESP 11; O2SAT 97
[2019-10-15 16:30] VITALS: BP 155/74; PULSE 87; RESP 14; O2SAT 96
[2019-10-15 17:33] VITALS: BP 161/77; PULSE 92; RESP 15; O2SAT 96
[2019-10-15 17:58] VITALS: BP 166/77; PULSE 84; RESP 16; O2SAT 98
[2019-10-17 07:10] LABS: COVID19 Sendout Not Detected (Not Detected)
== END 2019-10-15 17:59 | disposition home or self-care (01) ==
PROVIDERS: Emergency Provider Emergency Medicine; PCP Nurse Practitioner Acute Care
DX: J44.1 Chronic obstructive pulmonary disease with (acute) exacerbation (principal); R05 Cough; B34.9 Viral infection, unspecified
CPT/HCPCS: 36415; 71045; 80053; 82550; 82553; 83605; 83690; 84484; 85025; 85610; 85730; 87635; 93005; 96361; 96374; 99284; J2930

== ENCOUNTER 2019-10-22 22:25 | Emergency (ER) | payer OTHER, MEDICAID, SELFPAY ==
--- NOTE | 2019-10-22 22:32 | ED_ITS ---
HPI - URI/Sore Throat General Chief Complaint: Upper Respiratory Symptoms Stated Complaint: THROAT FEELS LIKE CLOSING BACK NECK SALAMANCA Time Seen by Provider: 10/22/19 22:26 Source: patient Mode of arrival: Ambulatory Limitations: no limitations History of Present Illness HPI Narrative: 63M former smoker with asthma presents for the 3rd time in the past month. He's been evaluated twice for COVID-19 and both swabs have been negative. He's had thorough workups and notes that his throat symptoms had completely resolved after a course of steroids, but as soon as they wear off he gets the sensation that his throat is closing. He states it feels scratchy and sometimes painful, but largely that it is closing. He denies trouble breathing, rash, or other. He's had no runny nose or fever. He denies N/V/D. He is not di zzy, weak, or lightheaded. MD Complaint: sore throat Onset (ago): week(s) Duration: intermittent Severity: moderate Relieving factors: nothing Exacerbating factors: nothing Description of mucous: clear Able to tolerate fluids by mouth: Yes Associated symptoms: denies other symptoms Treatments prior to arrival: none Related Data Home Medications Medication Instructions Recorded Confirmed albuterol sulfate [Ventolin HFA] 2 puff INHALATION PRN PRN #0 08/09/17 10/15/19 allopurinol 200 mg PO DAILY 10/28/18 10/15/19 tiotropium bromide [Spiriva 2 puff INHALATION DAILY 10/28/18 10/15/19 Respimat] Previous Rx's Medication Instructions Recorded benzonatate [Tessalon Perles] 100 mg PO BID PRN #14 cap 10/15/19 prednisone 20 mg PO DAILY #5 tab 10/15/19 prednisone See Rx Instructions .ROUTE 10/22/19 .COMPLEX #30 tab Allergies Allergy/AdvReac Type Severity Reaction Status Date / Time No Known Drug Allergies Allergy Verified 10/22/19 22:45 Review of Systems Constitutional Constitutional: Denies chills, Denies fatigue, Denies fever(s), Denies frequent falls, Denies lethargy and Denies weakness Eyes Eyes: Denies change in vision, Denies eye discharge, Denies irritation and Denies loss of vision ENT Ears, Nose, Mouth, and Throat: Denies change in voice, Denies dizziness, Denies neck pain, Reports sore throat and Reports throat swelling Cardiovascular Cardiovascular: Denies chest pain, Denies irregular heart rhythm, Denies lightheadedness, Denies palpitations, Denies dyspnea, Denies dyspnea on exertion and Denies orthopnea Respiratory Respiratory: Denies cough, Denies dyspnea, Denies dyspnea on exertion and Denies wheezing Gastrointestinal Gastrointestinal: Denies abdominal pain, Denies change in bowel habits, Denies diarrhea, Denies nausea and Denies vomiting Genitourinary Genitourinary: Denies hematuria, Denies flank pain, Denies urinary incontinence and Denies urinary urgency Musculoskeletal Musculoskeletal: Denies back pain, Denies muscle weakness, Denies neck pain, Denies numbness and Denies tingling Integumentary/Breasts Skin/Breast: Denies pruritus, Denies erythema, Denies rash and Denies wounds Neurologic Neurologic: Denies behavioral changes, Denies confusion, Denies dizziness, Denies frequent falls, Denies loss of vision, Denies numbness, Denies tingling and Denies weakness Psychiatric Psychiatric: Denies anxiety, Denies behavioral changes, Denies confusion, Denies depression, Denies homicidal ideation and Denies suicidal ideation Endocrine Endocrine: Denies fatigue, Denies flushing and Denies palpitations Hematologic/Lymphatic Hematologic/Lymphatic: Denies easy bruising Allergic/Immunologic Allergic/Immunologic: Denies urticaria, Reports throat swelling and Denies wheezing Patient History Medical History Asthma (Acute) Gout (Acute) Hypertension (Acute) Social History household members: spouse Smoking Status: Former smoker Smoking Status: Former smoker alcohol intake frequency: holidays/special occasions only Substance Use Type: does not use Exam Narrative Exam Narrative: GENERAL: [63] year old patient appears stated age. Well- nourished, well-developed patient, in mild distress. HEAD: Atraumatic. Normocephalic. EYES: Pupils equal round and reactive. Extraocular motions intact. No scleral icterus. No injection or drainage. ENT: Nose without bleeding, purulent drainage. Throat with mild posterior pharyngeal erythema but widely patent and without tonsillar swelling or exudate. No uvular swelling. No suggestion of abscess as evidenced by pharyngeal fullness NECK: Trachea midline. Non tender CARDIOVASCULAR: Regular rate and rhythm without murmurs, gallops, or rubs. RESPIRATORY: Clear to auscultation. Breath sounds equal bilaterally. No wheezes, rales, or rhonchi. GASTROINTESTINAL: Abdomen soft, non-tender, nondistended. EXTREMITIES: No edema or joint tenderness. BACK: Nontender without deformity or crepitance. No flank tenderness. NEURO: AOx3. SKIN: No rash or erythema of visible areas Initial Vital Signs Initial Vital Signs: Vital Signs Temperature 98.5 F 10/22/19 22:45 Pulse Rate 89 10/22/19 22:45 Respiratory Rate 16 10/22/19 22:45 Blood Pressure 165/80 H 10/22/19 22:45 Pulse Oximetry 98 10/22/19 22:45 Course Orders Ordered: ED Orders 10/22/19 22:35 Throat Culture Stat 10/22/19 23:06 Monotest Stat Discontinued Medications Dexamethasone (Decadron) 10 mg PO NOW ONE Stop: 10/22/19 22:37 Last Admin: 10/22/19 22:58 Dose: 10 mg Documented by: SHANNON Ketorolac Tromethamine (Toradol) 60 mg IM NOW ONE Stop: 10/22/19 22:37 Last Admin: 10/22/19 22:59 Dose: Not Given Documented by: SHANNON Ketorolac Tromethamine (Toradol) 30 mg IM NOW ONE Stop: 10/22/19 22:56 Last Admin: 10/22/19 22:59 Dose: 30 mg Documented by: SHANNON Vital Signs Vital signs: Vital Signs - 8 hr 10/22/19 22:45 Temperature 98.5 F Pulse Rate 89 Respiratory Rate 16 Blood Pressure 165/80 H Pulse Oximetry 98 MDM - URI/Sore Throat Lab Data Labs: Lab Results 10/22/19 Range/Units 23:06 Monoscreen Negative (Negative) Point of Care Testing Rapid Strep A Negative Discharge Plan Departure Patient Disposition: Home Clinical Impression: Pain in throat, Throat fullness Activity Restrictions/Additional Instructions: *You have been diagnosed with [throat fullness. Strep test and mono test were negative. There is a throat culture pending which should be back within a few days ] *What to do: *Take medications as directed *Follow up with your primary care provider in 2-3 days, call for an appointment. Let them know you were seen in the Emergency Department and that we ask that you be seen in follow up *Return to ER if you should have any new, worsening or concerning symptoms Prescriptions: New prednisone 10 mg tablet See Rx Instructions .ROUTE .COMPLEX Qty: 30 RF: 0 No Action albuterol sulfate [Ventolin HFA] 90 MCG/PUFF HFA aerosol inhaler 2 puff Inhalation PRN PRN (Reason: Dyspnea) Qty: 0 RF: 0 allopurinol 100 mg Tablet 200 mg PO DAILY RF: 0 Spiriva Respimat 2.5 mcg/actuation Mist 2 puff INHALATION DAILY RF: 0 prednisone 20 mg tablet 20 mg PO DAILY Qty: 5 RF: 0 benzonatate [Tessalon Perles] 100 mg capsule 100 mg PO BID PRN (Reason: cough) Qty: 14 RF: 0 Referrals: Angie Vallejo [Primary Care Provider] -
[2019-10-22 22:45] VITALS: BP 165/80; PULSE 89; RESP 16; TEMP 36.9; O2SAT 98; BMI 33.2
[2019-10-22] MEDS: DEXAMETHASONE 10 MG/ML VIAL PO (22:58)
[2019-10-22] MEDS: KETOROLAC 60 MG/2 ML VIAL 30 MG IM (22:59)
[2019-10-22 23:21] LABS: Monotest Negative (Negative)
[2019-10-23 00:09] VITALS: BP 165/80; PULSE 83; RESP 16; O2SAT 99
== END 2019-10-23 00:11 | disposition home or self-care (01) ==
PROVIDERS: Emergency Provider Emergency Medicine; PCP Nurse Practitioner Acute Care
DX: R07.0 Pain in throat (principal); R68.89 Other general symptoms and signs
CPT/HCPCS: 36415; 86318; 87070; 87880; 96372; 99283; 99284; J1100; J1885

== ENCOUNTER 2023-02-28 08:05 | Emergency (ER) | payer OTHER, SELFPAY ==
[2023-02-28] VITALS (10 sets, daily range): BP systolic 139–184; BP diastolic 63–83; PULSE 96–115; RESP 13–21; TEMP 36.3; O2SAT 91–96; BMI 29.2
--- NOTE | 2023-02-28 08:14 | DI.RAD.S_ITS ---
PROCEDURE: XR CHEST 1V INDICATIONS: chest pain TECHNIQUE: One view of the chest was acquired. COMPARISON: [facility], CR, XR CHEST 1V, 10/15/2019, 14:27. [facility], CR, XR CHEST 1V, 10/07/2019, 19:07. FINDINGS: Surgical changes and devices: None. Lungs and pleura: No consolidation. No pleural effusions or pneumothorax. Mediastinum: Mediastinal contours appear normal. Heart size is normal. Bones and chest wall: No suspicious bony lesions. Overlying soft tissues appear unremarkable. IMPRESSION: No acute cardiopulmonary abnormality. Dictated by: Bryce King M.D. on 02/28/2023 at 8:59 Approved by: Bryce King M.D. on 02/28/2023 at 9:00
--- NOTE | 2023-02-28 08:15 | ED_ITS ---
HPI - Chest Pain General Chief Complaint: Chest Pain Stated Complaint: [facility] woke [facility] diff breathing, sweating Time Seen by Provider: 02/28/23 08:07 Source: patient Mode of arrival: Family Vehicle Limitations: no limitations History of Present Illness HPI narrative: 67-year-old male former smoker with history of COPD and asthma presents with his in the chief complaint of chest pain and shortness of breath this morning. He states that he went to bed feeling in his normal state of health other than having some mouth pain, he recently had some teeth pulled but upon waking today feels short of breath and had been sweaty, he contacted the [place] and was sent here for evaluation. He states that he is short of breath persistently and denies any change with exertion, no worsening with lying flat, no swelling of his legs. He states that he has some central chest pain that seems to come and go with a mind of its own and states that he has been having this for many years and this is no different. He denies any exertional symptoms, radiation of the pain or exercise intolerance. He denies recent travel, trauma, hospitalization, history of cancer or blood clot. Related Data Home Medications Medication Instructions Recorded Confirmed albuterol sulfate 90 mcg/actuation 2 puff inhalation PRN PRN Dyspnea 08/09/17 10/15/19 aerosol inhaler (Ventolin HFA) ##0 allopurinol 100 mg tablet 200 mg PO DAILY 10/28/18 10/15/19 tiotropium bromide 2.5 2 puff inhalation DAILY 10/28/18 10/15/19 mcg/actuation mist for inhalation (Spiriva Respimat) Previous Rx's Medication Instructions Recorded benzonatate 100 mg capsule 100 mg PO BID PRN cough #14 caps 10/15/19 (Alisa Rico) prednisone 20 mg tablet 20 mg PO DAILY #5 tabs 10/15/19 prednisone 10 mg tablet See Rx Instructions .Route 10/22/19 .COMPLEX #30 tabs doxycycline hyclate 100 mg tablet 100 mg PO BID #14 tabs 02/28/23 Allergies Allergy/AdvReac Type Severity Reaction Status Date / Time No Known Drug Allergies Allergy Verified 02/28/23 08:15 Review of Systems Review of Systems Narrative: GENERAL: See HPI. HEENT: Denies sinus pain, ear pain, sore throat, difficulty swallowing, dizzine ss. RESPIRATORY: See HPI CARDIOVASCULAR: See HPI GASTROINTESTINAL: Denies nausea, vomiting, abdominal pain, diarrhea, constipation, melena. : Denies dysuria, frequency, incontinence, hematuria, urinary retention. MUSCULOSKELETAL: denies weakness, joint pain, or bony pain SKIN: Denies rash, skin lesions, or other NEUROLOGIC: Denies weakness, headache, numbness, change in speech, confusion, seizures, incoordination. PSYCHIATRIC: No concerning psychosocial issues. 12 point review of systems is negative except for those stated above Patient History Medical History (Updated 02/28/23 @ 11:15 by Victorino Hughes DO) Asthma Gout Hypertension Social History household members: spouse Smoking Status: Former smoker Smoking Status: Former smoker alcohol intake frequency: holidays/special occasions only Substance Use Type: does not use Exam Narrative Exam Narrative: GENERAL: [67] year old patient appears stated age. Well-developed patient, in mild distress. HEAD: Atraumatic. Normocephalic. EYES: Pupils equal round and reactive. Extraocular motions intact. No scleral icterus. No injection or drainage. ENT: Nose without bleeding, purulent drainage. Throat without erythema, tonsillar hypertrophy or exudate. Airway patent. NECK: Trachea midline. Non tender CARDIOVASCULAR: Tachycardic but regular rhythm without murmurs, gallops, or rubs. RESPIRATORY: Decreased breath sounds throughout with prolonged expiratory phase, no obvious rales, rhonchi or wheezing GASTROINTESTINAL: Abdomen soft, non-tender, nondistended. EXTREMITIES: No edema or joint tenderness. BACK: Nontender without deformity or crepitance. No flank tenderness. NEURO: AOx3. SKIN: No rash or erythema of visible areas Initial Vital Signs Initial Vital Signs: Vital Signs Temperature 97.4 F L 02/28/23 08:09 Pulse Rate 115 H 02/28/23 08:09 Respiratory Rate 20 02/28/23 08:09 Blood Pressure 139/77 02/28/23 08:09 Pulse Oximetry 91 02/28/23 08:09 Oxygen Delivery Method Room Air 02/28/23 08:09 Course Orders Ordered: ED Orders 02/28/23 08:14 XR chest 1V Stat 02/28/23 08:25 EKG-12 Lead Stat 02/28/23 08:40 Complete Blood Count AUTO DIFF Stat Comprehensive Metabolic Panel Stat D Dimer Stat Lipase Stat NT-proBNP (BNP-Adult 18+) Stat Procalcitonin Stat Respiratory Panel (Film Array) Stat Troponin & CK Cardiac Panel Stat 02/28/23 10:06 CT angio chest PE protocol Stat Sodium Chloride (Normal Saline 0.9%) 1,000 mls @ 150 mls/hr IV CONT MARTIN Last Admin: 02/28/23 08:38 Dose: 150 mls/hr Documented By: ABBY Discontinued Medications Aspirin (Aspirin 81 Mg Chew Tab) 324 mg PO NOW ONE Stop: 02/28/23 08:15 Last Admin: 02/28/23 08:39 Dose: 324 mg Documented By: ABBY Vital Signs Vital signs: Vital Signs - 8 hr 02/28/23 08:09 02/28/23 08:41 02/28/23 08:41 Temperature 97.4 F L Pulse Rate 115 H 98 H Respiratory Rate 20 Blood Pressure 139/77 150/75 H Pulse Oximetry 91 92 Oxygen Delivery Method Room Air 02/28/23 09:00 02/28/23 09:00 02/28/23 09:30 Temperature Pulse Rate 96 H 106 H Respiratory Rate 15 Blood Pressure 154/72 H Pulse Oximetry 93 93 Oxygen Delivery Method 02/28/23 09:41 02/28/23 09:41 02/28/23 10:00 Temperature Pulse Rate 98 H 97 H Respiratory Rate 17 13 Blood Pressure 155/70 H Pulse Oximetry 94 Oxygen Delivery Method 02/28/23 10:26 02/28/23 10:26 02/28/23 10:30 Temperature Pulse Rate 105 H 105 H Respiratory Rate 16 21 Blood Pressure 184/83 H Pulse Oximetry 93 96 Oxygen Delivery Method 02/28/23 10:31 02/28/23 10:31 02/28/23 11:00 Temperature Pulse Rate 104 H Respiratory Rate 20 Blood Pressure 140/63 150/75 H Pulse Oximetry 96 Oxygen Delivery Method 02/28/23 11:00 Temperature Pulse Rate 105 H Respiratory Rate 19 Blood Pressure Pulse Oximetry 92 Oxygen Delivery Method MDM - Chest Pain Lab Data 02/28/23 08:40 02/28/23 08:40 Labs: Lab Results 02/28/23 02/28/23 02/28/23 Range/Units 08:40 08:40 08:40 WBC 18.4 H (4.5-11.0) X10^3/uL RBC 4.79 (4.5-5.9) X10^6/uL Hgb 13.7 (13.5-17.5) g/dL Hct 40.3 L (41-53) % MCV 84.1 (80-100) fL MCH 28.6 (26-34) PG MCHC 34.0 (30-36) % RDW 14.1 (11.6-14.8) % Plt Count 276 (150-400) X10^3/uL Neut % (Auto) 89.2 H (50-75) % Lymph % (Auto) 4.2 L (25-40) % Bladen % (Auto) 6.4 (3-14) % Eos % (Auto) 0.0 L (2-4) % Baso % (Auto) 0.2 (0-2) % Neut # (Auto) 32923 H (0720-5246) /uL Lymph # (Auto) 800 L (3283-0332) /uL Bladen # (Auto) 1200 H (0-900) /uL Eos # (Auto) 0 (0-450) /uL Baso # (Auto) 0 (0-100) /uL D-Dimer 649 H (<500) ng/ml Sodium 134 L (137-145) mmol/L Potassium 4.1 (3.4-5.1) mmol/L Chloride 97 L (98-107) mmol/L Carbon Dioxide 28 (22-32) mmol/L BUN 20 (9-20) mg/dL Creatinine 1.40 H (0.66-1.25) mg/dL Estimated GFR 56 L (>60) mL/min BUN/Creatinine Ratio 14.3 (6-22) Glucose 249 H (80-110) mg/dL Calcium 9.3 (8.4-10.2) mg/dL Total Bilirubin 2.2 H (0.2-1.3) mg/dL AST 22 (17-59) IU/L ALT 18 (<50) IU/L Alkaline Phosphatase 113 (38-126) U/L Total Creatine Kinase 38 L (55-170) U/L Troponin I < 0.012 (0.01-0.034) ng/mL NT-Pro-B Natriuret Pep 110 (<125) pg/mL Total Protein 7.7 (6.3-8.2) g/dL Albumin 4.3 (3.5-5.0) g/dL Globulin 3.4 (1.7-4.1) g/dL Albumin/Globulin Ratio 1.3 (1.0-2.8) Lipase 44 (23-300) U/L Procalcitonin 0.18 (<0.5) ng/mL Chlamy pneumoniae PCR (Not Detect) Adenovirus (PCR) (Not Detect) B. pertussis DNA (PCR) (Not Detecte) B.parapertussis DNA PCR (Not Detecte) Coronavirus OC43 (PCR) (Not Detect) Coronavirus HKU1 (PCR) (Not Detect) Coronavirus 229E (PCR) (Not Detect) SARS-CoV-2 (PCR) (Not Detecte) Coronavirus NL63 (PCR) (Not Detect) Human Metapneumovir PCR (Not Detect) Influenza Type A (PCR) (Not Detect) Influenza Type B (PCR) (Not Detect) M. pneumoniae (PCR) (Not Detect) Parainfluenza 1 (PCR) (Not Detect) Parainfluenza 2 (PCR) (Not Detect) Parainfluenza 3 (PCR) (Not Detect) Parainfluenza 4 (PCR) (Not Detect) RSV (PCR) (Not Detect) Entero/Rhino (PCR) (Not Detect) 02/28/23 Range/Units 08:40 WBC (4.5-11.0) X10^3/uL RBC (4.5-5.9) X10^6/uL Hgb (13.5-17.5) g/dL Hct (41-53) % MCV (80-100) fL MCH (26-34) PG MCHC (30-36) % RDW (11.6-14.8) % Plt Count (150-400) X10^3/uL Neut % (Auto) (50-75) % Lymph % (Auto) (25-40) % Bladen % (Auto) (3-14) % Eos % (Auto) (2-4) % Baso % (Auto) (0-2) % Neut # (Auto) (3790-4572) /uL Lymph # (Auto) (4138-1384) /uL Bladen # (Auto) (0-900) /uL Eos # (Auto) (0-450) /uL Baso # (Auto) (0-100) /uL D-Dimer (<500) ng/ml Sodium (137-145) mmol/L Potassium (3.4-5.1) mmol/L Chloride (98-107) mmol/L Carbon Dioxide (22-32) mmol/L BUN (9-20) mg/dL Creatinine (0.66-1.25) mg/dL Estimated GFR (>60) mL/min BUN/Creatinine Ratio (6-22) Glucose (80-110) mg/dL Calcium (8.4-10.2) mg/dL Total Bilirubin (0.2-1.3) mg/dL AST (17-59) IU/L ALT (<50) IU/L Alkaline Phosphatase (38-126) U/L Total Creatine Kinase (55-170) U/L Troponin I (0.01-0.034) ng/mL NT-Pro-B Natriuret Pep (<125) pg/mL Total Protein (6.3-8.2) g/dL Albumin (3.5-5.0) g/dL Globulin (1.7-4.1) g/dL Albumin/Globulin Ratio (1.0-2.8) Lipase (23-300) U/L Procalcitonin (<0.5) ng/mL Chlamy pneumoniae PCR Not detected (Not Detect) Adenovirus (PCR) Not detected (Not Detect) B. pertussis DNA (PCR) Not detected (Not Detecte) B.parapertussis DNA PCR Not detected (Not Detecte) Coronavirus OC43 (PCR) Not detected (Not Detect) Coronavirus HKU1 (PCR) Not detected (Not Detect) Coronavirus 229E (PCR) Not detected (Not Detect) SARS-CoV-2 (PCR) Not detected (Not Detecte) Coronavirus NL63 (PCR) Not detected (Not Detect) Human Metapneumovir PCR Not detected (Not Detect) Influenza Type A (PCR) Not detected (Not Detect) Influenza Type B (PCR) Not detected (Not Detect) M. pneumoniae (PCR) Not detected (Not Detect) Parainfluenza 1 (PCR) Not detected (Not Detect) Parainfluenza 2 (PCR) Not detected (Not Detect) Parainfluenza 3 (PCR) Not detected (Not Detect) Parainfluenza 4 (PCR) Not detected (Not Detect) RSV (PCR) Not detected (Not Detect) Entero/Rhino (PCR) Not detected (Not Detect) MDM Narrative Medical decision making narrative: CC: 67-year-old male smoker with chief complaint of shortness of breath, sweating and chest pain this morning Complicating co-morbidities: Age, smoking Data collected from: Patient Medical records reviewed: Prior notes reviewed in our EMR Differential considered, but not limited to: Cardiac ischemia versus pulmonary embolism versus pneumonia versus viral upper respiratory infection versus other Exam documented above, pertinent findings include: Heart rate regular but tachycardic, lungs clear but prolonged expiratory phase and decreased breath sounds, no hypoxemia Lab Test results independently reviewed as above. Pertinent findings: Independently reviewed EKG as above Imaging studies independently reviewed: Chest x-ray without acute findings, CTA of chest demonstrates ground-glass opacities consistent with atypical pneumonia, no evidence of pulmonary embolism Discussion: Patient with shortness of breath feeling feverish and some pleuritic-type chest pain with reassuring exam, stable vitals, no increased work of breathing or hypoxemia. Labs are very reassuring, multiple diagnoses considered as noted above, cardiac ischemia thought extremely unlikely given history and physical, nonocclusive EKG and negative troponin. Pulmonary embolism considered, CT angiogram shows no PE, pneumonia considered most likely given history and physical as well as evaluation today. No indication for hospitalization given how little work of breathing and lack of eye, hypoxemia. Disposition: see below, along with detailed discharge instructions that have been reviewed with patient as well as indications for ED re-evaluation and additional outpatient follow up Discharge Plan Departure Patient Disposition: Home Clinical Impression: Atypical pneumonia Instructions: DI for Atypical Pneumonia Activity Restrictions/Additional Instructions: *You have been diagnosed with [atypical pneumonia ] *What to do: *Please continue to take your regular medications as directed. [x ] New medication prescriptions sent to your pharmacy: [ [facility]] [ ] New medication written as a paper prescription [ ] No new medications given *Please follow up with your primary care provider in 2-3 days, call for an appoi ntment. Let them know you were seen in the Emergency Department and that we ask that you be seen in follow up. We will electronically transmit a record of today's note if your PCP is in our system *If you do not have a primary care provider please contact the [facility] Resource line at [phone]. They will ask some questions about your medical history and help get you set up with a doctor in the community. *Return to Emergency Department if you should have any new, worsening or ramiro rning symptoms, such as [fever greater than 101 F, shaking chills, worsening pain, persistent vomiting or other bothersome symptoms] Prescriptions: New doxycycline hyclate 100 mg tablet 100 mg PO BID Qty: 14 0RF No Action albuterol sulfate [Ventolin HFA] 90 MCG/PUFF HFA aerosol inhaler 2 puff Inhalation PRN PRN (Reason: Dyspnea) Qty: 0 allopurinol 100 mg Tablet 200 mg PO DAILY Spiriva Respimat 2.5 mcg/actuation Mist 2 puff INHALATION DAILY prednisone 20 mg tablet 20 mg PO DAILY Qty: 5 0RF benzonatate [Tessalon Perles] 100 mg capsule 100 mg PO BID PRN (Reason: cough) Qty: 14 0RF prednisone 10 mg tablet See Rx Instructions .ROUTE .COMPLEX Qty: 30 0RF Rx Instructions: Day 1,2,3: 40mg PO Daily Day 4,5,6: 30mg PO Daily Day 7,8,9: 20mg PO Daily Day 10,11,12: 10mg PO Daily #30 Referrals: Angie Vallejo ARNP [Primary Care Provider] - Stand Alone Forms: Patient Portal/API
[2023-02-28] MEDS: SODIUM CHLORIDE 0.9% 1,000 ML 150 ML IV (08:38)
[2023-02-28] MEDS: ASPIRIN 81 MG CHEW TAB 324 MG PO (08:39)
[2023-02-28 08:50] LABS: Add Manual Diff / Slide Review NO; Basophils Absolute Auto 0 /uL (0-100); Basophils Percent Auto 0.2 % (0-2); Eosinophils Absolute Auto 0 /uL (0-450); Hematocrit 40.3 % (41-53); Hemoglobin 13.7 g/dL (13.5-17.5); Lymphocytes Absolute Auto 800 /uL (1100-4500); Lymphocytes Percent Auto 4.2 % (25-40); Mean Corpuscular Hemoglobin 28.6 PG (26-34); Mean Corpuscular Volume 84.1 fL (80-100); Monocytes Absolute Auto 1200 /uL (0-900); Monocytes Percent Auto 6.4 % (3-14); Neutrophils Absolute Auto 16400 /uL (1500-7000); Neutrophils Percent Auto 89.2 % (50-75); Platelet Count 276 X10^3/uL (150-400); Red Blood Cell Count 4.79 X10^6/uL (4.5-5.9); Red Cell Distribution Width 14.1 % (11.6-14.8); White Blood Cell Count 18.4 X10^3/uL (4.5-11.0)
[2023-02-28 08:59] LABS: D Dimer 649 ng/ml (<500)
[2023-02-28 09:03] LABS: Alanine Aminotransferase 18 IU/L (<50); Albumin 4.3 g/dL (3.5-5.0); Albumin Globulin Ratio 1.3 (1.0-2.8); Alkaline Phosphatase 113 U/L (38-126); Aspartate Aminotransferase 22 IU/L (17-59); BUN Creatinine Ratio 14.3 (6-22); Bilirubin Total 2.2 mg/dL (0.2-1.3); Blood Urea Nitrogen 20 mg/dL (9-20); Calcium 9.3 mg/dL (8.4-10.2); Carbon Dioxide 28 mmol/L (22-32); Chloride 97 mmol/L (98-107); Creatine Kinase 38 U/L (55-170); Estimated Glomerular Filt Rate 56 mL/min (>60); Globulin 3.4 g/dL (1.7-4.1); Glucose 249 mg/dL (80-110); HEMOLYSIS < 15 (0-50); Lipase 44 U/L (23-300); Potassium 4.1 mmol/L (3.4-5.1); Sodium 134 mmol/L (137-145); Total Protein 7.7 g/dL (6.3-8.2)
[2023-02-28 09:14] LABS: NT-proBNP (BNP-Adult 18+) 110 pg/mL (<125); Troponin I < 0.012 ng/mL (0.01-0.034)
[2023-02-28 09:19] LABS: Procalcitonin 0.18 ng/mL (<0.5)
[2023-02-28 09:40] LABS: Adenovirus Not Detected (Not Detect); B. parapertussis Not Detected (Not Detecte); Bordetella pertussis Not Detected (Not Detecte); Chlamydophila pneumoniae Not Detected (Not Detect); Coronavirus 229E Not Detected (Not Detect); Coronavirus HKU1 Not Detected (Not Detect); Coronavirus NL 63 Not Detected (Not Detect); Coronavirus OC43 Not Detected (Not Detect); Human Metapneumovirus Not Detected (Not Detect); Human Rhinovirus/Enterovirus Not Detected (Not Detect); Influenza A Not Detected (Not Detect); Influenza B Not Detected (Not Detect); Mycoplasma pneumoniae Not Detected (Not Detect); Parainfluenza Virus 1 Not Detected (Not Detect); Parainfluenza Virus 2 Not Detected (Not Detect); Parainfluenza Virus 3 Not Detected (Not Detect); Parainfluenza Virus 4 Not Detected (Not Detect); Respiratory Syncytial Virus Not Detected (Not Detect); SARS- CoV-2 Not Detected (Not Detecte)
--- NOTE | 2023-02-28 10:06 | DI.CT.S_ITS ---
PROCEDURE: CT ANGIO CHEST PE PROTOCOL INDICATIONS: CP, SOB, tachycardia, former smoker TECHNIQUE: After the administration of intravenous contrast, 2 mm thick sections acquired from the pulmonary apices to the posterior costophrenic angles. 3-dimensional maximum intensity projection (MIP) coronal and sagittal reformats were then acquired through the thorax. For radiation dose reduction, the following was used: automated exposure control, adjustment of mA and/or kV according to patient size. COMPARISON: [facility], CR, XR CHEST 1V, 02/28/2023, 8:20. FINDINGS: Image quality: Fair. Contrast bolus timing is delayed. Pulmonary arteries: Pulmonary arteries are normal in size, and demonstrate no intraluminal filling defects to suggest central pulmonary embolism. No aortic dissection. No aortic aneurysm. Lungs and pleura: Mild emphysematous change. Patchy ground-glass opacity in the left lower lobe. No pleural effusions or pneumothorax. Trace secretions in the trachea and left mainstem bronchus. Mediastinum: Heart size is normal, without pericardial effusion. Enlarged subcarinal lymph node measuring 1.1 cm, (4/). Thoracic aorta is normal in caliber and enhancement. Esophagus is normal in caliber, without hiatal hernia. Bones and chest wall: No suspicious bony lesions. Ribs and thoracic spine appear intact throughout. Thyroid gland is unremarkable. No axillary or supraclavicular adenopathy. Abdomen: Visualized upper abdominal solid organs appear normal in the early arterial phase of enhancement. Small simple right renal1 cyst. IMPRESSION: 1. No central pulmonary embolism. No aortic dissection. 2. Patchy ground-glass opacity in the left lower lobe most consistent with pneumonia or aspiration pneumonia. Recommend follow-up to resolution. 3. No pleural effusion. 4. Enlarged right subcarinal lymph node measuring 1.1 cm. This could be reactive in nature. Dictated by: Bryce King M.D. on 02/28/2023 at 10:52 Approved by: Bryce King M.D. on 02/28/2023 at 11:01
== END 2023-02-28 11:23 | disposition home or self-care (01) ==
PROVIDERS: Emergency Provider Emergency Medicine; PCP Nurse Practitioner Acute Care
DX: J18.9 Pneumonia, unspecified organism (principal); R06.02 Shortness of breath; Z20.822 Contact with and (suspected) exposure to COVID-19
CPT/HCPCS: 36415; 71045; 71275; 80053; 82550; 83690; 83880; 84145; 84484; 85025; 85379; 87633; 93005; 96360; 96361; 99284; Q9967

== ENCOUNTER → 2023-03-05 10:08 | Outpatient (CLI) | payer OTHER, SELFPAY ==
--- NOTE | 2023-03-05 | DI.US.S_ITS ---
PROCEDURE: US ABD AORTA ANEURYSM SCREEN INDICATIONS: SCREENING TECHNIQUE: Real time scanning was performed of the aorta and iliac arteries, with image documentation. COMPARISON: None. FINDINGS: Aorta: Proximal aortic diameter measures 2.8 cm. Mid-aorta measures 2.3 cm. Distal aortic diameter is 2.1 cm. Iliac arteries: Right common iliac artery measures 1.5 cm. Left common iliac artery measures 1.5 cm. Small ventral hernia containing fat measures 1.1 cm IMPRESSION: No evidence of abdominal aortic aneurysm. Incidental small ventral hernia Approved by: Jersey Murray M.D. on 03/05/2023 at 10:27
== END ==
PROVIDERS: PCP Nurse Practitioner Acute Care; Referring Provider Student in an Organized Health Care Education/Training Program; Visit Provider Student in an Organized Health Care Education/Training Program
DX: Z13.6 Encounter for screening for cardiovascular disorders (principal); K43.9 Ventral hernia without obstruction or gangrene
CPT/HCPCS: 76706

== ENCOUNTER 2024-12-29 09:37 | Day surgery (SDC) | payer OTHER, SELFPAY ==
[2024-12-17 09:42] VITALS: BMI 30.4
[2024-12-29 10:21] VITALS: BMI 30.2
[2024-12-29] MEDS: ACETAMINOPHEN 325 MG TABLET 975 MG PO ×2 (10:33→10:46)
[2024-12-29] MEDS: LACTATED RINGERS 1,000 ML 42 ML IV (10:39)
[2024-12-29] MEDS: ALBUTEROL/IPRATROPIUM 3 ML AMPUL INH (10:48)
--- NOTE | 2024-12-29 10:50 | SUR.PREOP ---
Bethany order for Maria De Jesus ROTHMAN. Pt did not take albuterol or advair this am. Lungs clear but slightly tight.
[2024-12-29 11:08] VITALS: BP 132/63; PULSE 69; RESP 16; TEMP 35.9; O2SAT 96
--- NOTE | 2024-12-29 11:41 | PM.PREOP ---
Pre-operative Note COVID-19 COVID-19 status: Not tested Interval Note History & Physical reviewed/Exam performed by Physician: Yes Changes to H&P: No ASA Class (for procedural sedation): II
[2024-12-29] MEDS: CEFAZOLIN 2 GM/100 ML PREMIX 100 ML IV (12:20)
--- NOTE | 2024-12-29 12:27 | SUR.OPER ---
Supine on padded OR bed, head on pillow, arms secured on padded arm boards at <90 degrees abduction, legs uncrossed, safety belt at thigh, tape over blanket over lower legs. PA in room at time of positioning with anesthesia, all pressure points padded and final position approved.
[2024-12-29] MEDS: BUPIVACAINE 0.5% W/ EPI (PF) 30 ML VIAL INJ (12:35)
[2024-12-29 13:03] VITALS: BP 128/61; PULSE 77; RESP 13; TEMP 36.4; O2SAT 95
[2024-12-29 13:08] VITALS: BP 135/74; PULSE 76; RESP 14; O2SAT 94
--- NOTE | 2024-12-29 13:11 | PM.OP.1 ---
Operative Date/Time/Diagnoses Date of procedure: 12/29/24 Time of procedure: 13:11 Pre-op diagnosis: Umbilical hernia Post-op diagnosis: same Procedure & Clinicians Procedure: Open umbilical hernia repair with mesh Same procedure(s) as scheduled: Yes Surgeon: Vladimir Nino Powerhouse Attendant: Konstantin Sarabia Anesthesia Type: General Operative Notes Findings: 1 cm defect containing incarcerated omentum Applied: none Estimated Blood Loss (mL): 10 Procedure in detail: Ancef was administered. The patient was brought to the operating room, placed on the table in the supine position and general endotracheal anesthesia was induced. The abdomen was prepped and draped in the usual fashion. A time-out was performed. A 6 cm curvilinear incision was made inferior to the umbilicus. The hernia sac was dissected free from the surrounding subcutaneous adipose tissue. The sac was dissected off the umbilical stalk using a combination of cautery, sharp and blunt dissection. The hernia sac was opened and some incarcerated omentum was transected with the cautery. The remainder of the hernia sac was allowed to drop back down into the abdomen. The fascial defect was about 1 cm. The fascia was then closed transversely with multiple interrupted 0 Ethibond sutures. The subcutaneous adipose tissue was cleared off of the anterior sheath circumferentially about 2 cm in each direction. A piece of polypropylene mesh was trimmed to fit over the fascial closure and secured with Tisseel. Once the Tisseel was dried the umbilical skin was tacked down to the mesh with a single 3-0 Vicryl stitch. The skin was closed with multiple interrupted 3-0 Vicryl dermal sutures followed by a running 4 Monocryl subcuticular closure. Steri-Strips were applied and an abdominal binder was applied. EBL: 10 mL Konstantin WILSON provided assistance with exposure, retraction and closure of incisions. Complications: none Post-operative Condition: stable Disposition: PACU
[2024-12-29 13:13] VITALS: BP 141/64; PULSE 80; RESP 16; O2SAT 95
[2024-12-29 13:23] VITALS: BP 138/75; PULSE 68; RESP 14; O2SAT 98
== END 2024-12-29 13:43 | disposition home or self-care (01) ==
PROVIDERS: PCP Family Medicine; Referring Provider Surgery; Visit Provider Surgery
PROC: (CPT 49592; principal; 2024-12-29 11:45)
DX: K42.0 Umbilical hernia with obstruction, without gangrene (principal)
CPT/HCPCS: 49592; C1781; C9250; J0690; J1100; J1885; J2405; J2704